=== PATIENT | male | born 1945 | race Caucasian/White ===

== ENCOUNTER 2019-08-24 11:08 | Emergency (ER) | payer OTHER ==
[~2019-08-24] VITALS: Ht 182.9 cm; Wt 143.2 kg
[2019-08-24 11:11] VITALS: Ht 182.9 cm; Wt 143.2 kg
[2019-08-24 12:25] LABS: ANION GAP 14.4 mmol/L (8-16); CALCIUM 9.5 mg/dL (8.5-10.1); CARBON DIOXIDE 29.6 mmol/L (21.0-32.0); CREATININE - SERUM 3.9 mg/dL (0.6-1.3)
[2019-08-24 12:30] LABS: BASOPHILS 0.1 % (0-2); EOSINOPHILS 0.3 % (0-7); HEMATOCRIT 28.9 % (42.0-54.0); HEMOGLOBIN 8.1 g/dL (13.5-17.5); IMMATURE GRANULOCYTES 0.5 % (0-5); LYMPHOCYTES 4.1 % (15-50); MCH 23.3 pg (26.0-34.0); MONOCYTES 4.6 % (2-11); NEUTROPHILS 90.4 % (40-80); PLATELET COUNT 645 10x3/uL (130-400); RBC 3.48 10x6/uL (4.20-6.10); RDW 19.2 % (11.5-14.5); WBC 12.5 10x3/uL (4.8-10.8)
[2019-08-24 12:31] LABS: ALBUMIN 2.7 g/dL (3.4-5.0); BILIRUBIN - TOTAL 0.41 mg/dL (0.2-1.3); PROTEIN - SERUM 7.5 g/dL (6.4-8.2)
[2019-08-24 18:56] VITALS: BP 160/71
== END 2019-08-24 19:00 | disposition other institution (70) ==
LOC: D.ER 11:08
PROVIDERS: Family Medicine
DX: R53.1 Weakness (principal); N17.9 Acute kidney failure, unspecified; D64.9 Anemia, unspecified; E87.5 Hyperkalemia; R26.2 Difficulty in walking, not elsewhere classified; J44.9 Chronic obstructive pulmonary disease, unspecified; E11.9 Type 2 diabetes mellitus without complications